=== PATIENT | female | born 1950 | race Hispanic/Latino ===

== ENCOUNTER 2020-03-22 05:21 | Observation (INO) | payer MEDICARE, OTHER ==
[2020-03-17 10:35] LABS: BASOPHILS # (AUTO) 0.1 (0.0-0.1); BASOPHILS % 0.8 % (0.0-1.0); EOSINOPHILS # (AUTO) 0.3 (0.0-0.4); EOSINOPHILS % 2.9 % (0.0-6.0); HEMATOCRIT 43.2 % (34.2-44.1); LYMPHOCYTES # (AUTO) 2.5 (1.0-3.2); LYMPHOCYTES % 25.5 % (18.0-39.1); MEAN CORPUSCULAR HEMOGLOBIN 28.5 pg (28-32); MEAN CORPUSCULAR HGB CONC 30.1 g/dL (31-35); MEAN CORPUSCULAR VOLUME 94.7 fL (81-99); MONOCYTES # (AUTO) 0.8 (0.2-0.8); MONOCYTES % 8.1 % (4.4-11.3); NEUTROPHILS # (AUTO) 6.1 (2.1-6.9); NEUTROPHILS % 62.3 % (38.7-80.0); PLATELET COUNT 421 x10e3/uL (140-360); RED BLOOD COUNT 4.56 x10e6/uL (3.6-5.1); RED CELL DISTRIBUTION WIDTH 13.1 % (11.7-14.4)
--- NOTE | 2020-03-17 10:53 | Diagnostic Imaging Report ---
EXAMINATION: CHEST 2 VIEWS INDICATION: Pre-operative COMPARISON: None FINDINGS: LINES/TUBES:None LUNGS:The lungs are well-inflated. No focal consolidation or pulmonary edema. PLEURA:No pleural effusion or pneumothorax. MEDIASTINUM:The cardiomediastinal silhouette appears normal in size and shape. Atherosclerotic calcifications of the thoracic aorta. BONES/SOFT TISSUES:No acute osseous injury. Right axillary surgical clips. ABDOMEN:No free air under the diaphragm. IMPRESSION: No focal pneumonia or pulmonary edema. Signed by: Kenzie Oleary MD on 03/17/2020 10:49 AM
[2020-03-17 11:01] LABS: ALBUMIN 4.1 g/dL (3.5-5.0); ALBUMIN/GLOBULIN RATIO 0.9 (0.8-2.0); ANION GAP 14.7 mmol/L (8-16); CALCIUM 9.7 mg/dL (8.4-10.2); CREATININE, SERUM 0.93 mg/dL (0.57-1.11); POTASSIUM 3.7 mmol/L (3.5-5.1)
[~2020-03-22] VITALS: Ht 154.9 cm; Wt 67.6 kg
[~2020-03-22 05:21] MED LIST: ALENDRONATE SOD70 MG PO; AMLODIPINE BESYL5 MG PO; ARIMIDEX1 MG PO; FARXIGA5 MG PO; GABAPENTIN300 MG PO; GLIPIZIDE ER5 MG PO; LIPITOR10 MG PO; METFORMIN HCL500 MG PO; MONTELUKAST SOD10 MG PO; VASOTEC5 MG PO
[2020-03-22] MEDS ORDERED: CEFAZOLIN SOD 1 GM/NS 50ML 100 ML IV ONE (06:17)
[2020-03-22] MEDS ORDERED: ESTROGENS CONJUGATED VAGINAL CR 45 GM TUBE PV ONE (07:20)
[2020-03-22] MEDS ORDERED: BUPIVACAINE 0.25%/EPI 30ML SDV INJ ONE ×2 (07:20→08:59)
[2020-03-22] MEDS ORDERED: DOCUSATE SODIUM 100 MG CAP PO PRN (09:30)
[2020-03-22] MEDS ORDERED: KETOROLAC TROMETHAMINE 30 MG/ML VIAL IM PRN (09:30)
[2020-03-22] MEDS ORDERED: HYDROCODONE/APAP 10MG-325MG TAB PO PRN (09:30)
[2020-03-22] MEDS ORDERED: DEXTROSE 50% SYRINGE 50 ML IV PRN (10:00)
[2020-03-22] MEDS ORDERED: MORPHINE SULFATE 2 MG/ML SYR 1ML ONE ×2 (10:44→11:06)
[2020-03-22] MEDS ORDERED: HYDROMORPHONE 2MG/ML 2 MG/ML ML ONE (11:07)
[2020-03-22] MEDS: INSULIN REGULAR, HUMAN 100 UNIT/1 ML 3ML VIAL SQ SCH ×3 (11:42→22:08)
[2020-03-22 14:02] VITALS: BP 133/64
--- NOTE | 2020-03-22 14:02 | NUR ---
RECEIVED PT FROM PACU VIA STRETCHER; PT MOVE OVER WITH MINIMAL ASSIST. PAIN LEVEL 2/10.
--- NOTE | 2020-03-22 15:49 | Operative Report ---
DATE OF PROCEDURE: 03/22/2020 SURGEON: Maggie Duffy MD PREOPERATIVE DIAGNOSIS: Pelvic organ prolapse. POSTOPERATIVE DIAGNOSIS: Pelvic organ prolapse. PROCEDURE: Vaginal hysterectomy, anterior and posterior repair, sacrospinous colpopexy. COMPLICATIONS: None. ESTIMATED BLOOD LOSS: 20 mL. DESCRIPTION OF PROCEDURE: The patient was taken to the OR where general anesthesia was induced. She was prepped and draped in a normal sterile fashion, placed in dorsal lithotomy position after examination under anesthesia. A weighted speculum was placed inside the vagina. Cervix was grasped with single-tooth tenaculum and subvaginal tissue around the cervix was injected with Marcaine with epi 0.25, 20 mL. Circumferential vaginal skin incision was made with a scalpel and bladder was dissected off the cervix using curved Cummings scissors. The pouch of Yang was opened and the curved Zeppelin clamps were applied to the uterosacral ligaments, cut and pedicle secured with transfixion suture of Vicryl 0. The same was repeated on the uterine vessels, cut, pedicle secured with transfixion suture of Vicryl 0. Following this, a finger was passed through the incision and anterior pouch was put under stretch and opened with Metzenbaum scissors. Curved Zeppelin clamps were applied on each side of the uterus and the uterus was freed, sent to pathology and pedicle secured with transfixion suture of Vicryl 0. Following this, the anterior repair was performed with 2 hemostats, were applied on the anterior vaginal wall and using Metzenbaum scissors, the bladder was dissected off the anterior wall using the push-spread technique and the anterior vaginal wall was opened in the midline using the Metzenbaum scissors. The two flaps were dissected off the bladder using both sharp and blunt dissection. The bladder was dissected off completely of anterior vaginal wall and pelvic fascia was pierced with index fingers around the inferior pubic ramus and sacrospinous suture was placed on the sacrospinous ligament using Capio needle willingham. The same was repeated on the other side. The other end of the suture was sutured to the vaginal vault. The pubocervical ligaments were approximated using Vicryl 2, Vicryl 0, 2 sutures were used. Excess vaginal skin was trimmed off using curved Cummings scissors and the vagina was closed with continuous interlocking stitches of Vicryl 0. The sacrospinous sutures were tied and the vaginal vault was lifted. Posterior repair was performed without difficulty with 2 Allis clamps were applied on the mucocutaneous junction about 1 cm from the fourchette and the skin in between was removed. The vagina was dissected off the perineum using both sharp and blunt dissection. The vagina was opened posterior using curved Cummings scissors and the two flaps of the vagina dissected off underlying tissues using both sharp and blunt dissection. The levator ani was approximated using Vicryl 0 stitch, 2 sutures were used and excess vaginal skin was trimmed off using curved Cummings scissors. The vagina was closed with interlocking stitches of Vicryl 0 and the perineum was closed with subcu Vicryl 2-0. Vaginal pack and Garcia catheter placed inside and revealed clear urine, which maintained throughout the surgery. The patient tolerated the procedure well. Lap, instruments and needle counts were correct x2 at the end of procedure. Maggie Duffy MD DD/JOANIE /[id number]
[2020-03-22 16:26] VITALS: BP 133/64
[2020-03-22] MEDS ORDERED: LEVOFLOXACIN 500MG/D5W 100ML 100 ML IV SCH ×2 (18:00→20:00)
[2020-03-22] MEDS: LACTATED RINGER'S 1,000 ML IV SCH ×2 (18:19→18:24)
--- NOTE | 2020-03-22 19:10 | NUR ---
RECEIVED QUICK BRIEF BEDSIDE SHIFT REPORT FROM PREVIOUS NURSE. PATIENT IN BED. CALL LIGHT WITHIN REACH.
[2020-03-22] MEDS: MEPERIDINE HCL INJ 25 MG/ML VIAL IV PRN (19:41)
[2020-03-22] MEDS: ONDANSETRON HCL INJ 2MG/ML 2ML 2 MG/ML VIAL IV PRN (19:41)
[2020-03-22 20:00] VITALS: BP 131/52
[2020-03-22 20:15] VITALS: BP 131/52
[2020-03-23] VITALS: BP 131/59
[2020-03-23] MEDS: MEPERIDINE HCL INJ 25 MG/ML VIAL IV PRN ×3 (01:29→11:26)
[2020-03-23] MEDS: ONDANSETRON HCL INJ 2MG/ML 2ML 2 MG/ML VIAL IV PRN (01:29)
[2020-03-23 04:00] VITALS: BP 133/59
[2020-03-23] MEDS: LACTATED RINGER'S 1,000 ML IV SCH ×3 (04:02→17:09)
--- NOTE | 2020-03-23 07:00 | NUR ---
RECEIVED PATIENT AWAKE RESTING IN BED NO S/S OF DISTRESS. BED LOW, WHEELS LOCKED, SIDE RAILS X2. CALL LIGHT IN REACH WILL CONTINUE TO MONITOR.
[2020-03-23 07:04] LABS: BASOPHILS % 0.1 % (0.0-1.0); EOSINOPHILS % 0.1 % (0.0-6.0); HEMATOCRIT 35.2 % (34.2-44.1); HEMOGLOBIN 11.1 g/dL (12.0-16.0); LYMPHOCYTES # (AUTO) 1.4 (1.0-3.2); LYMPHOCYTES % 9.7 % (18.0-39.1); MEAN CORPUSCULAR HEMOGLOBIN 28.4 pg (28-32); MEAN CORPUSCULAR HGB CONC 31.5 g/dL (31-35); MONOCYTES # (AUTO) 1.4 (0.2-0.8); MONOCYTES % 9.9 % (4.4-11.3); NEUTROPHILS # (AUTO) 11.4 (2.1-6.9); NEUTROPHILS % 79.6 % (38.7-80.0); PLATELET COUNT 377 x10e3/uL (140-360); RED BLOOD COUNT 3.91 x10e6/uL (3.6-5.1); RED CELL DISTRIBUTION WIDTH 12.9 % (11.7-14.4)
--- NOTE | 2020-03-23 07:13 | NUR ---
GAVE BEDSIDE SHIFT REPORT TO ONCOMING NURSE. HOURLY ROUNDING PERFORMED. PATIENT IN BED. CALL LIGHT WITHIN REACH.
[2020-03-23] MEDS: INSULIN REGULAR, HUMAN 100 UNIT/1 ML 3ML VIAL SQ SCH ×3 (07:30→16:30)
[2020-03-23 08:28] VITALS: BP 154/56
--- NOTE | 2020-03-23 08:45 | NUR ---
REMOVED PATIENTS SMILEY CATHETER. PATIENT DUE TO VOID. CATHETER TIP INTACT ON REMOVAL.
--- NOTE | 2020-03-23 10:15 | NUR ---
VAGINAL PACKING REMOVED. NO ACTIVE BLEEDING AT THIS TIME. WILL CONTINUE TO MONITOR.
[2020-03-23 10:16] VITALS: BP 154/56
--- NOTE | 2020-03-23 11:09 | NUR ---
PATIENT HAS VOIDED SINCE SMILEY REMOVAL.
[2020-03-23 12:04] VITALS: BP 151/62
[2020-03-23] MEDS ORDERED: ONDANSETRON HCL 4 MG ORAL DISINTEGRATING TAB PO PRN (12:30)
[2020-03-23 15:51] VITALS: BP 164/65
--- NOTE | 2020-03-23 18:02 | NUR ---
DR. MURPHY MAKING ROUNDS. VERBAL ORDER RECEIVED TO DISCHARGE.
[2020-03-23] MEDS ORDERED: TYLENOL WITH C1 EACH PO (18:07)
[2020-03-23] MEDS ORDERED: COLACE100 MG PO (18:07)
--- NOTE | 2020-03-23 18:15 | NUR ---
REMOVED PATIENTS IV. CATHETER TIP INTACT AND PRESSURE DRESSING APPLIED.
--- NOTE | 2020-03-23 18:54 | NUR ---
PATIENT DISCHARGED IN STABLE CONDITION.
--- OUTSIDE RECORDS SUMMARY | 2020-03-25 19:10 | XMS REPORT | Summary of Care ---
Author Author SALINAS Otoole, JONATHAN ULRICH Organization Unknown Address Unknown Phone Unavailable Care Team Providers Care Hr Manager Name Role Phone CAROLIN MALDONADO M.D. Unavailable Unavailable SURESH DE OLIVEIRA, ANDERSON Armstrong Unavailable Unavailable SUNNY DE OLIVEIRA, TYRONE Unavailable Unavailable ANI DE OLIVEIRA [place], BAHGiovany Unavailable Unavailable Unavailable Unavailable Functional Status Name Dates Details Functional status health issues are not documented Status: Name Dates Details Cognitive status health issues are not d ocumented Status: Problems Name Dates Details Post-menopausal (V49.81, Z78.0) Status: Active Follow up (V67.9, Z09) Status: Active Medications Name Dates Details Anastrozole 1 MG Oral Tablet * Start : 08-Jan-2020 Active Alendronate Sodium 70 MG Oral Tablet * Refills: 0 * Start : 08-Jan-2020 Active metFORMIN HCl - 500 MG Oral Tablet * Refills: 0 * Start : 08-Jan-2020 Active glipiZIDE 5 MG Oral Tablet * Refills: 0 * Start : 08-Jan-2020 Active Atorvastatin Calcium 10 MG Oral Tablet * Refills: 0 * Start : 08-Jan-2020 Active Enalapril Maleate 20 MG Oral Tablet * Refills: 0 * Start : 08-Jan-2020 Active amLODIPine Besy-Benazepril HCl - 5-10 MG Oral Capsule * Refills: 0 * Start : 08-Jan-2020 Active Farxiga 5 MG Oral Tablet * Refills: 0 * Start : 08-Jan-2020 Active Gabapentin 300 MG Oral Capsule * Refills: 0 * Start : 08-Jan-2020 Active Estradiol 0.1 MG/GM Vaginal Cream APPLY A PEA-SIZED AMOUNT (0.5 mg) TO VAGINAL OPENING EVERY DAY FOR ONE WEEK * Quantity: 1 Refills: 0 CAROLIN MALDONADO M.D. * Start : 08-Jan-2020 Active 42.5 GM Tube Allergies and Adverse Reactions Name Dates Details No Known Allergies (Allergy) Status: Act mai Past Medical History Name Dates Details History of Diabetes (250.00, E11.9) Status: Resolved History of Ductal carcinoma of right omari ast (V10.3, Z85.3) Status: Resolved History of High blood pressure (401.9, I 10) Status: Resolved History of hyperlipidemia (V12.29, Z86.3 9) Status: Resolved Procedures Procedure Dates Details History of Lumpectomy Completed History of [place] lymph node biopsy procedure Completed Immunization Name Dates Details Immunizations not documented Social History Name Dates Details - Status: Name Dates Details Never smoked tobacco (finding) Vital Signs Date Test Result Details [id number] Systolic blood pressure 161 mm[Hg] Status: Comments : Location: RUE; Position: Sitting Diastolic blood pressure 74 mm[Hg] Status: Comment s: Location: RUE; Position: Sitting Body height 60 in Status: Weight 152 lb Status: Body mass index (BMI) [Ratio] 29.69 kg/m2 Status: Body surface area Derived from formula 1.66 m2 S tatus: Body temperature 98.4 f Status: Comments: Me thod: Tympanic Heart Rate 111 /min Status: [id number] Systolic blood pressure 163 mm[Hg] Status: Comments : Location: RUE; Position: Sitting Diastolic blood pressure 73 mm[Hg] Status: Comment s: Location: RUE; Position: Sitting Body height 60 in Status: Weight 152 lb Status: Body mass index (BMI) [Ratio] 29.69 kg/m2 Status: Body surface area Derived from formula 1.66 m2 S tatus: Heart Rate 97 /min Status: Results Date Description Value Details Results not documented Plan of Care Name Dates Details Planned Observations Planned Goals not documented Planned Encounters Appointment; TYRONE CORREA M.D. On: 21-Jan-2020 13:00 Appointment; [facility], ROOM1 On: 12-Feb-2020 9:30 Instructions Name Dates Details Instructions not documented Encounters Appointment; CAROLIN MALDONADO M.D. Encounter Diagnosis: Problem not documented On: 08-Jan-2020 14:30 Appointment; CAROLIN MALDONADO M.D. Encounter Diagnosis: Problem not documented On: 15-Jan-2020 10:30
--- OUTSIDE RECORDS SUMMARY | 2020-03-25 19:10 | XMS REPORT | Summary of Care ---
Author Author SALINAS Otoole, JONATHAN ULRICH Organization Unknown Address Unknown Phone Unavailable Care Team Providers Care Professor Of Communication Name Role Phone LADI MALDONADO M.D. Unavailable Unavailable SURESH DE OLIVEIRA, ANDERSON Armstrong Unavailable Unavailable SUNNY DE OLIVEIRA, TYRONE Unavailable Unavailable ANI DE OLIVEIRA [place], BAHGiovany Unavailable Unavailable Unavailable Unavailable Functional Status [...] ONE WEEK * Quantity: 1 Refills: 0 LADI MALDONADO M.D. * Start : 08-Jan-2020 Active [...] Details History of Lumpectomy Completed History of [place] lymph node biopsy procedure Completed Immunization Name Dates Details Immunizations not documented Social History Name Dates Details - Status: Name Dates Details Never smoked tobacco (finding) Vital Signs Date Test Result Details [id number] Systolic blood pressure 161 mm[Hg] Status: Comments [...] thod: Tympanic Heart Rate 111 /min Status: [id number] Systolic blood pressure 163 mm[Hg] Status: Comments [...] Goals not documented Planned Encounters Appointment; TYRONE ESPINO M.D. On: 21-Jan-2020 13:00 Appointment; DENICE GENTILE M.D. On: 12-Feb-2020 9:00 Interventions Provided Discussion/Summary* 69 yo with PMHx significant for R breast invasive ductal carcinoma (ER+/AZ+, Her2-), DM, HTN, HLD, here for follow-up of pessary placement. * 1. Uterine procidentia * -Fitted with ring with support pessary #5 on 01/08/2020. Reports is happy with the pessary * -Taught Pt how to take pessary out, clean the pessary, and place the pessary back in herself. Pt able to demonstrate proficiency in taking the pessary out and placing it back in clinic today * -Advised Pt to clean pessary with soap and water weekly. Pt expressed understanding * -Compliant with estrace cream * -Pelvic exam: small abrasion to posterior fourchette noted, otherwise WNL. Pt placed pessary in herself and pessary noted to not be in contact with the area of abrasion. Advised Pt to apply the estrace cream to the area of abrasion and follow-up in 1 month * -Referral to Dr. Espino sent at last visit, however is not in Pt's insurance network. Information for [facility] urogyn given * 2. Breast cancer * - R breast invasive ductal carcinoma (ER+/AZ+, Her2-) Dx in 2014 (full management course in external medical records) * - s/p radiation, lumpectomy, SNLD. On anastrozole since 2015, reports that is supposed to take 5 the anastrozole for 5 years (so is scheduled to stop taking it in 2020) * - F/b an oncologist at [facility], next appointment 06/2020 * - F/b [facility], is to follow-up 03/2020 * 3. DM * -On metformin 1000 mg BID, glipizide 10 mg BID, gabapentin 300 mg BID, Invokana 100 mg daily, Farxiga 5 mg daily * 4. HTN * -On Enalapril 20 mg daily, valsartan 40 mg daily * -BP 161/74 with repeat 145/72. Reports she was running late and in hurry when the first BP was taken * -Pt asymptomatic * -Counseled Pt on the importance of following-up with PCP with HTN management. Pt reports that she is in contact with PCP for follow-up * 5. HLD * -On atorvastatin 10 mg daily * 6. HCM * -Pap: denies h/o abnormal paps smears. Paps not indicated * -MMG: reports had abnormal MMG 11/2019 with biopsy that was normal. Is scheduled for another MMG 03/2020 by an outside provider * RTC in 1 month. * Discussed with Dr. Trinidad. * Ladi Maldonado MD * PGY-1. Instructions Name Dates Details Instructions not documented Encounters Appointment; LADI MALDONADO M.D. Encounter Diagnosis: Problem not documented On: 08-Jan-2020 14:30 Appointment; LADI MALDONADO M.D. Encounter Diagnosis: Problem not documented On: 15-Jan-2020 10:30
--- OUTSIDE RECORDS SUMMARY | 2020-03-25 19:10 | XMS REPORT | Continuity of Care Document ---
Author Author [facility] t Organization [facility] Address [address] [place] [address] Phone Unavailable Care Team Providers Care Advertising Teacher Name Role Phone JOHN BROWN PCP Unavailable FAUSTO MURPHY Attphys Unavailable CAROLIN MALDONADO M.D. Attphys Unavailable Problems Condition Name Condition Details Condition Category Status Onset Date Resolution Date Last Treatment Date Treating Clinician Comments Source Post-menopausal Post-menopausal Problem Active [facility] History of Diabetes History of Diabetes Problem Resolved [facility] History of Ductal carcinoma of right breast History of Ductal carcinoma of right breast Problem Resolved [facility] History of High blood pressure History of High blood pressure Probl em Resolved [facility] History of hyperlipidemia History of hyperlipidemia Problem Resolved [facility] Follow up Follow up Problem Active [facility] Allergies, Adverse Reactions, Alerts This patient has no known allergies or adverse reactions. Social History Smoking Status Start Date Stop Date Source [facility] smoked tobacco (finding[facility] Medications Ordered Medication Name Filled Medication Name Start Date Stop Da te Current Medication? Ordering Clinician Indication Dosage Frequency Signature (SIG) Comments Components Source Anastrozole 1 MG Oral Tablet Anastrozole 1 MG Oral Tablet 2019-12-25 5 00:00:00 Yes [facility] Alendronate Sodium 70 MG Oral Tablet Alendronate Sodium 70 M G Oral Tablet 2020-01-08 00:00:00 Yes [facility] metFORMIN HCl - 500 MG Oral Tablet metFORMIN HCl - 500 MG Or al Tablet 2020-01-08 00:00:00 Yes [facility] glipiZIDE 5 MG Oral Tablet glipiZIDE 5 MG Oral Tablet 2020-01-08 00:0 0:00 Yes [facility] Atorvastatin Calcium 10 MG Oral Tablet Atorvastatin Calcium 10 MG Oral Tablet 2020-01-08 00:00:00 Yes [facility] Enalapril Maleate 20 MG Oral Tablet Enalapril Maleate 20 MG Oral Tablet 2020-01-08 00:00:00 Yes [facility] amLODIPine Besy-Benazepril HCl - 5-10 MG Oral Capsule amLODIPine Besy-Benazepril HCl - 5-10 MG Oral Capsule 2020-01-08 00:00:00 Yes [facility] Farxiga 5 MG Oral Tablet Farxiga 5 MG Oral Tablet 2020-01-08 00:00:00 Yes [facility] Gabapentin 300 MG Oral Capsule Gabapentin 300 MG Oral Capsul e 2020-01-08 00:00:00 Yes [facility] Estradiol 0.1 MG/GM Vaginal Cream Estradiol 0.1 MG/GM Vagina l Cream 2020-01-08 00:00:00 Yes CAROLIN MALDONADO M.D. AP PLY A PEA-SIZED AMOUNT (0.5 mg) TO VAGINAL OPENING EVERY DAY FOR ONE WEEK U [facility] Vital Signs Vital Name Observation Time Observation Value Comments Source Systolic blood pressure 2020-01-15 10:43:00 161 mm[Hg] Loca tion: RUE; Position: Sitting [facility] Diastolic blood pressure 2020-01-15 10:43:00 74 mm[Hg] Loc ation: RUE; Position: Sitting [facility] Body height 2020-01-15 10:43:00 60 [in_us] [facility] Weight 2020-01-15 10:43:00 152 [lb_av] [facility] Body mass index (BMI) [Ratio] 2020-01-15 10:43:00 29.69 kg/m2 [facility] Body temperature 2020-01-15 10:43:00 98.4 [degF] Method: Tympanic [facility] Heart Rate 2020-01-15 10:43:00 111 /min [facility] Systolic blood pressure 2020-01-08 14:20:00 163 mm[Hg] Loca tion: RUE; Position: Sitting [facility] Diastolic blood pressure 2020-01-08 14:20:00 73 mm[Hg] Loc ation: RUE; Position: Sitting [facility] Body height 2020-01-08 14:20:00 60 [in_us] [facility] Weight 2020-01-08 14:20:00 152 [lb_av] [facility] Body mass index (BMI) [Ratio] 2020-01-08 14:20:00 29.69 kg/m2 [facility] Heart Rate 2020-01-08 14:20:00 97 /min [facility] Procedures Procedure Date / Time Performed Performing Clinician [facility] e History of Lumpectomy [facility] History of [place] lymph node biopsy procedure [facility] Encounters Start Date/Time End Date/Time Encounter Type Admission Type [facility] Care Department Encounter ID Source 2020-01-15 10:30:00 2020-01-15 10:30:00 Appointment; CAROLIN MALDONADO M.D. NGUY, LINDSEY, M.D. [facility] [id number] 2020-01-08 14:30:00 2020-01-08 14:30:00 Appointment; CAROLIN MALDONADO M.D. NGUY, LINDSEY, M.D. [facility] [id number] [facility] 2017-12-09 09:12:00 2017-12-09 09:12:00 Outpatient [facility] [id number] [facility] 2017-08-12 07:18:00 2017-08-12 07:18:00 Outpatient [facility] [id number] [facility] 2017-06-18 10:16:00 2017-06-18 10:16:00 Outpatient [facility] [id number] [facility] 2017-06-14 12:58:00 2017-06-14 12:58:00 Outpatient [facility] [id number] [facility] Results Test Description Test Time Test Comments Results Result Comments Source CHEST 2 VIEWS 2020-03-17 10:49:00 [facility] [address] [place] [address] Patient Name: JONATHAN ESCOBEDO MR #: [id number] : 1950 Age/Sex: 69/F Req #: [id number] Adm Physician: Ordered by: FAUSTO MURPHY MD Report #: [id number] Location: OR Room/Bed: Procedure: [id number] DX/CHEST 2 VIEWS Exam Date: 03/17/20 Exam Time: 1013 REPORT STATUS: Signed EXAMINATION: CHEST 2 VIEWS INDICATION: Pre-operative COMPARISON: None FINDINGS: LINES/TUBES:None LUNGS:The lungs are well-inflated. No focal consolidation or pulmonary edema. PLEURA:No pleural effusion or pneumothorax. MEDIASTINUM:The cardiomediastinal silhouette appears normal in size and shape. Atherosclerotic calcifications of the thoracic aorta. BONES/SOFT TISSUES:No acute osseous injury. Right axillary surgical clips. ABDOMEN:No free air under the diaphragm. IMPRESSION: No focal pneumonia or pulmonary edema. Signed by: Rosi Jurado MD on 03/17/2020 10:49 AM Dictated By: ROSI JURADO MD 1049 Transcribed By: SANKET on 03/17/20 1049 COPY TO: FAUSTO MURPHY MD US Breast Biopsy w/ US Guide Right 2019-10-21 10:44:42 Patient: JONATHAN ESCOBEDO Date/Time10/13/2019 12:48 CSTReason for ExamC50.411AddendumPathology:Fibroadipose tissue with fat necrosis. Dense hyalinizing fibrosis. Scattered chronic inflammation. Negative for malignancy.Pathology is concordant with imaging findings.RECOMMENDATIONS: RETURN TO ANNUAL MAMMOGRAM AND ANNUAL BREAST ULTRASOUND RECOMMENDED.BI-RADS Category 2: BenignBI-RADS Category 2: Benign Final Dictated by: MD Juan, Valerie FDictated DT/TM: 10/21/2019 10:41 amSigned by: MD Martinez Eniola FSigned (Electronic Signature): 10/21/2019 10:44 amReportDictation location: R 16RIGHT BREAST ULTRASOUND GUIDED CORE BIOPSY WITH MARKER PLACEMENT AND POSTPROCEDURE RIGHT MAMMOGRAM:History: The patient presents for biopsy of developing asymmetry in the right breast in the areas of known oral cysts..Comparison made to prior ultrasound dated 09/19/2019FINDINGS:Informed consent was obtained from the patient which included a discussion of risks, benefits and alternatives.Using ultrasound guidance, aseptic technique and %1 lidocaine local anesthesia, an incision was made in the skin with a scalpel. A 14 gauge core biopsy needle was placed to the level of the nodule via coaxial technique using ultrasound guidance and 5 cores were obtained. A ring-shaped marker was deployed at the biopsy site. The patient tolerated the procedure without difficulty.The tissue specimens were placed in formalin and submitted to the pathologist for histologic analysis.Pressure was held on the biopsy site until all bleeding subsided. The estimated blood loss was negligible. The skin incision was closed with Steri-strips. Post biopsy instructions were reviewed with the patient and a copy was given to her.Postprocedure mammogram was per formed to evaluate clip placement. Please note, a diagnostic mammogram was not performed. The biopsy marker is in the expected location.The patient tolerated the procedure well and left the department in good condition.IMPRESSION:1. Ultrasound guided core biopsy of asymmetry, within the right breast, 12:00 axis, with marker placement.Exam Date/Time10/13/2019 12:48 CSTReport2. Histopathology is pending.3. Note that there is an additional focal asymmetry more posterior to the biopsy area, also at 12:00 axis. In the setting of negative biopsy, this other asymmetry may be followed up closely . If there is enlargement during follow-up, stereotactic biopsy (rather than ultrasound biopsy) may be necessary for increased accuracy. Breast MRI may be considered at any point (after 6 weeks). Final Dictated by: MD Martinez Eniola FDictated DT/TM: 10/13/2019 2:04 pmSigned by: MD Martinez Eniola FSigned (Electronic Signature): 10/13/2019 2:13 pmReport last revised on 10/21/2019 10:44 MAGAZINE PUBLISHER by MD Martinez Eniola F [facility] Mammo Digital Diagnostic Right 2019-10-21 10:44:42 Patient: JONATHAN ESCOBEDO Date/Time10/13/2019 12:32 CSTReason for ExamC50.411AddendumPathology:Fibroadipose tissue with fat necrosis. Dense hyalinizing fibrosis. Scattered chronic inflammation. Negative for malignancy.Pathology is concordant with imaging findings.RECOMMENDATIONS: RETURN TO ANNUAL MAMMOGRAM AND ANNUAL BREAST ULTRASOUND RECOMMENDED.BI-RADS Category 2: BenignBI-RADS Category 2: Benign Final Dictated by: MD Juan, Valerie FDictated DT/TM: 10/21/2019 10:41 amSigned by: MD Martinez Eniola FSigned (Electronic Signature): 10/21/2019 10:44 amReportDictation location: R 16RIGHT BREAST ULTRASOUND GUIDED CORE BIOPSY WITH MARKER PLACEMENT AND POSTPROCEDURE RIGHT MAMMOGRAM:History: The patient presents for biopsy of developing asymmetry in the right breast in the areas of known oral cysts..Comparison made to prior ultrasound dated 09/19/2019FINDINGS:Informed consent was obtained from the patient which included a discussion of risks, benefits and alternatives.Using ultrasound guidance, aseptic technique and %1 lidocaine local anesthesia, an incision was made in the skin with a scalpel. A 14 gauge core biopsy needle was placed to the level of the nodule via coaxial technique using ultrasound guidance and 5 cores were obtained. A ring-shaped marker was deployed at the biopsy site. The patient tolerated the procedure without difficulty.The tissue specimens were placed in formalin and submitted to the pathologist for histologic analysis.Pressure was held on the biopsy site until all bleeding subsided. The estimated blood loss was negligible. The skin incision was closed with Steri-strips. Post biopsy instructions were reviewed with the patient and a copy was given to her.Postprocedure mammogram was per formed to evaluate clip placement. Please note, a diagnostic mammogram was not performed. The biopsy marker is in the expected location.The patient tolerated the procedure well and left the department in good condition.IMPRESSION:1. Ultrasound guided core biopsy of asymmetry, within the right breast, 12:00 axis, with marker placement.Exam Date/Time10/13/2019 12:32 CSTReport2. Histopathology is pending.3. Note that there is an additional focal asymmetry more posterior to the biopsy area, also at 12:00 axis. In the setting of negative biopsy, this other asymmetry may be followed up closely . If there is enlargement during follow-up, stereotactic biopsy (rather than ultrasound biopsy) may be necessary for increased accuracy. Breast MRI may be considered at any point (after 6 weeks). Final Dictated by: MD Martinez Eniola FDictated DT/TM: 10/13/2019 2:04 pmSigned by: MD Martinez Eniola FSigned (Electronic Signature): 10/13/2019 2:13 pmReport last revised on 10/21/2019 10:44 MAGAZINE PUBLISHER by MD Martinez Eniola F US Breast Biopsy w/ US Guide Right 2019-10-13 14:13:01 Patient: JONATHAN ESCOBEDO Date/Time10/13/2019 12:48 CSTReason for ExamC50.411ReportDictation location: R 16RIGHT BREAST ULTRASOUND GUIDED CORE BIOPSY WITH MARKER PLACEMENT AND POSTPROCEDURE RIGHT MAMMOGRAM:History: The patient presents for biopsy of developing asymmetry in the right breast in the areas of known oral cysts..Comparison made to prior ultrasound dated 09/19/2019FINDINGS:Informed consent was obtained from the patient which included a discussion of risks, benefits and alternatives.Using ultrasound guidance, aseptic technique and %1 lidocaine local anesthesia, an incision was made in the skin with a scalpel. A 14 gauge core biopsy needle was placed to the level of the nodule via coaxial technique using ultrasound guidance and 5 cores were obtained. A ring-shaped marker was deployed at the biopsy site. The patient tolerated the procedure without difficulty.The tissue specimens were placed in formalin and submitted to the pathologist for histologic analysis.Pressure was held on the biopsy site until all bleeding subsided. The estimated blood loss was negligible. The skin incision was closed with Steri-strips. Post biopsy instructions were reviewed with the patient and a copy was given to her.Postprocedure mammogram was performed to evaluate clip placement. Please note, a diagnostic mammogram was not performed. The biopsy marker is in the expected location.The patient tolerated the procedure well and left the department in good condition.IMPRESSION:1. Ultrasound guided core biopsy of asymmetry, within the right breast, 12:00 axis, with marker placement.2. Histopathology is pending.3. Note that there is an additional focal asymmetry more posterior to the biopsy area, also at 12:00 axis. In the setting of negative biopsy, this other asymmetry may be followed up closely . If there is enlargement during follow-up, stereotactic biopsy (rather than ultrasound biopsy) may be necessary for increased accuracy. Breast MRI may be considered at any point (after 6 weeks). Final Dictated by: MD Juan, Valerie FDictated DT/TM: 10/13/2019 2:04 pmSigned by: MD Juan, Valerie FSigned (Electronic Signature): 10/13/2019 2:13 pm [facility] Mammo Digital Diagnostic Right 2019-10-13 14:13:01 Patient: JONATHAN ESCOBEDO Date/Time10/13/2019 12:32 CSTReason for ExamC50.411ReportDictation location: R 16RIGHT BREAST ULTRASOUND GUIDED CORE BIOPSY WITH MARKER PLACEMENT AND POSTPROCEDURE RIGHT MAMMOGRAM:History: The patient presents for biopsy of developing asymmetry in the right breast in the areas of known oral cysts..Comparison made to prior ultrasound dated 09/19/2019FINDINGS:Informed consent was obtained from the patient which included a discussion of risks, benefits and alternatives.Using ultrasound guidance, aseptic technique and %1 lidocaine local anesthesia, an incision was made in the skin with a scalpel. A 14 gauge core biopsy needle was placed to the level of the nodule via coaxial technique using ultrasound guidance and 5 cores were obtained. A ring-shaped marker was deployed at the biopsy site. The patient tolerated the procedure without difficulty.The tissue specimens were placed in formalin and submitted to the pathologist for histologic analysis.Pressure was held on the biopsy site until all bleeding subsided. The estimated blood loss was negligible. The skin incision was closed with Steri-strips. Post biopsy instructions were reviewed with the patient and a copy was given to her.Postprocedure mammogram was performed to evaluate clip placement. Please note, a diagnostic mammogram was not performed. The biopsy marker is in the expected location.The patient tolerated the procedure well and left the department in good condition.IMPRESSION:1. Ultrasound guided core biopsy of asymmetry, within the right breast, 12:00 axis, with marker placement.2. Histopathology is pending.3. Note that there is an additional focal asymmetry more posterior to the biopsy area, also at 12:00 axis. In the setting of negative biopsy, this other asymmetry may be followed up closely . If there is enlargement during follow-up, stereotactic biopsy (rather than ultrasound biopsy) may be necessary for increased accuracy. Breast MRI may be considered at any point (after 6 weeks). Final Dictated by: MD Martinez Eniola FDictated DT/TM: 10/13/2019 2:04 pmSigned by: MD Martinez Eniola FSigned (Electronic Signature): 10/13/2019 2:13 pm US Breast Complete Right 2019-10-02 16:05:08 Pat ient: JONATHAN ESCOBEDO Date/Time09/30/2019 09:45 CSTReason for ExamC50.411AddendumADDENDUM: CORRECTION:RECOMMENDATIONS: RIGHT BREAST ULTRASOUND-GUIDED BIOPSY. IRREGULAR AREA AT 12:00 AXIS.BI-RADS Category 4: Suspicious Final Dictated by: MD Martinez Eniola FDictated DT/TM: 10/02/2019 4:04 pmSigned by: MD Martinez Eniola FSigned (Electronic Signature): 10/02/2019 4:05 pmReportLocation [id number]:BILATERAL DIAGNOSTIC MAMMOGRAM WITH TOMOSYNTHESIS AND CADRIGHT BREAST ULTRASOUND COMPLETELEFT BREAST ULTRASOUND COMPLETEHISTORY: 68-year-old female with history of right breast cancer status post partial mastectomy and radiationCOMPARISON: Presenting for follow-up. Multiple prior mammograms and breast ultrasound, most recent prior is dated 09/19/2018.MAMMOGRAM:Technique: CC, exaggerated CC, ML and MLO views of both breasts. CC and MLO tomographic images of each breast with C- view provided. Computer-aided detection is u tilized.There are scattered areas of fibroglandular density.Right breast: Diffuse skin and trabecular thickening remains. The asymmetry at 12:00 axis is less prominent compared to prior mammogram with associated focal dystrophic calcification. However, ultrasound to be obtained for confirmation.Left breast: No evidence of new dominant mass, asymmetry, architectural distortion or suspicious microcalcifications is seen.ULTRASOUND:Technique: Complete survey of the right breast with survey of the right axilla obtained. Complete survey of the left breast with survey of the left axilla obtained. Real-time images of breasts performed by the radiologist as well.Right breast: At the 12:00 axis, 4 cm from the nipple, irregular 5 x 5 x 5 mm area is redemonstrated, is adjacent 2 the previously described calcification/calcified oil cysts. 12:00- 1:00 biopsy area is again seen as well. No axillary lymphadenopathy.Left breast: No evidence of focal mass, cyst or area of disturbed echotexture. No axillary lympha denopathy.PHYSICAL EXAM:On exam, no palpable abnormalities . Right breast scar.Exam Date/Time09/30/2019 09:45 CSTReportIMPRESSION:Indeterminate irregular hypoechoic area, 5 x 5 x 5 mm right breast 12:00 axis. Unclear if this represents components of a oil cyst versus mass. Biopsy recommended.RECOMMENDATIONS: RETURN TO ANNUAL SCREENING MAMMOGRAM RECOMMENDED.BI-RADS Category 2: Benign Final Dictated by: Javier Dowling MD, Eniola FDictated DT/TM: 09/30/2019 10:29 amSigned by: Javier Dowling MD, Eniola FSigned (Electronic Signature): 09/30/2019 10:39 amReport last revised on 10/02/2019 16:05 MAGAZINE PUBLISHER by MD Martinez Eniola F US Breast Complete Left 2019-10-02 16:05:08 Karyn ent: JONATHAN ESCOBEDO Date/Time09/30/2019 09:45 CSTReason for ExamC50.411AddendumADDENDUM: CORRECTION:RECOMMENDATIONS: RIGHT BREAST ULTRASOUND-GUIDED BIOPSY. IRREGULAR AREA AT 12:00 AXIS.BI-RADS Category 4: Suspicious Final Dictated by: MD Martinez Eniola FDictated DT/TM: 10/02/2019 4:04 pmSigned by: MD Martinez Eniola FSigned (Electronic Signature): 10/02/2019 4:05 pmReportLocation [id number]:BILATERAL DIAGNOSTIC MAMMOGRAM WITH TOMOSYNTHESIS AND CADRIGHT BREAST ULTRASOUND COMPLETELEFT BREAST ULTRASOUND COMPLETEHISTORY: 68-year-old female with history of right breast cancer status post partial mastectomy and radiationCOMPARISON: Presenting for follow-up. Multiple prior mammograms and breast ultrasound, most recent prior is dated 09/19/2018.MAMMOGRAM:Technique: CC, exaggerated CC, ML and MLO views of both breasts. CC and MLO tomographic images of each breast with C- view provided. Computer-aided detection is u tilized.There are scattered areas of fibroglandular density.Right breast: Diffuse skin and trabecular thickening remains. The asymmetry at 12:00 axis is less prominent compared to prior mammogram with associated focal dystrophic calcification. However, ultrasound to be obtained for confirmation.Left breast: No evidence of new dominant mass, asymmetry, architectural distortion or suspicious microcalcifications is seen.ULTRASOUND:Technique: Complete survey of the right breast with survey of the right axilla obtained. Complete survey of the left breast with survey of the left axilla obtained. Real-time images of breasts performed by the radiologist as well.Right breast: At the 12:00 axis, 4 cm from the nipple, irregular 5 x 5 x 5 mm area is redemonstrated, is adjacent 2 the previously described calcification/calcified oil cysts. 12:00- 1:00 biopsy area is again seen as well. No axillary lymphadenopathy.Left breast: No evidence of focal mass, cyst or area of disturbed echotexture. No axillary lympha denopathy.PHYSICAL EXAM:On exam, no palpable abnormalities . Right breast scar.Exam Date/Time09/30/2019 09:45 CSTReportIMPRESSION:Indeterminate irregular hypoechoic area, 5 x 5 x 5 mm right breast 12:00 axis. Unclear if this represents components of a oil cyst versus mass. Biopsy recommended.RECOMMENDATIONS: RETURN TO ANNUAL SCREENING MAMMOGRAM RECOMMENDED.BI-RADS Category 2: Benign Final Dictated by: Javier Dowling MD, Eniola FDictated DT/TM: 09/30/2019 10:29 amSigned by: Javier Dowling MD, Eniola FSigned (Electronic Signature): 09/30/2019 10:39 amReport last revised on 10/02/2019 16:05 MAGAZINE PUBLISHER by MD Martinez Eniola F Mammo Digital Diagnostic Bilat 2019-10-02 16:05:08 Patient: JONATHAN ESCOBEDO Date/Time09/30/2019 07:41 CSTReason for ExamC50.411AddendumADDENDUM: CORRECTION:RECOMMENDATIONS: RIGHT BREAST ULTRASOUND-GUIDED BIOPSY. IRREGULAR AREA AT 12:00 AXIS.BI-RADS Category 4: Suspicious Final Dictated by: MD Martinez Eniola FDictated DT/TM: 10/02/2019 4:04 pmSigned by: MD Martinez Eniola FSigned (Electronic Signature): 10/02/2019 4:05 pmReportLocation [id number]:BILATERAL DIAGNOSTIC MAMMOGRAM WITH TOMOSYNTHESIS AND CADRIGHT BREAST ULTRASOUND COMPLETELEFT BREAST ULTRASOUND COMPLETEHISTORY: 68-year-old female with history of right breast cancer status post partial mastectomy and radiationCOMPARISON: Presenting for follow-up. Multiple prior mammograms and breast ultrasound, most recent prior is dated 09/19/2018.MAMMOGRAM:Technique: CC, exaggerated CC, ML and MLO views of both breasts. CC and MLO tomographic images of each breast with C- view provided. Computer-aided detection is u tilized.There are scattered areas of fibroglandular density.Right breast: Diffuse skin and trabecular thickening remains. The asymmetry at 12:00 axis is less prominent compared to prior mammogram with associated focal dystrophic calcification. However, ultrasound to be obtained for confirmation.Left breast: No evidence of new dominant mass, asymmetry, architectural distortion or suspicious microcalcifications is seen.ULTRASOUND:Technique: Complete survey of the right breast with survey of the right axilla obtained. Complete survey of the left breast with survey of the left axilla obtained. Real-time images of breasts performed by the radiologist as well.Right breast: At the 12:00 axis, 4 cm from the nipple, irregular 5 x 5 x 5 mm area is redemonstrated, is adjacent 2 the previously described calcification/calcified oil cysts. 12:00- 1:00 biopsy area is again seen as well. No axillary lymphadenopathy.Left breast: No evidence of focal mass, cyst or area of disturbed echotexture. No axillary lympha denopathy.PHYSICAL EXAM:On exam, no palpable abnormalities . Right breast scar.Exam Date/Time09/30/2019 07:41 CSTReportIMPRESSION:Indeterminate irregular hypoechoic area, 5 x 5 x 5 mm right breast 12:00 axis. Unclear if this represents components of a oil cyst versus mass. Biopsy recommended.RECOMMENDATIONS: RETURN TO ANNUAL SCREENING MAMMOGRAM RECOMMENDED.BI-RADS Category 2: Benign Final Dictated by: Javier Dowling MD, Eniola FDictated DT/TM: 09/30/2019 10:29 amSigned by: Javier Dowling MD, Eniola FSigned (Electronic Signature): 09/30/2019 10:39 amReport last revised on 10/02/2019 16:05 MAGAZINE PUBLISHER by MD Martinez Eniola F US Breast Complete Right 2019-09-30 10:39:57 Pat ient: JONATHAN ESCOBEDO Date/Time09/30/2019 09:45 CSTReason for ExamC50.411ReportLocation [id number]:BILATERAL DIAGNOSTIC MAMMOGRAM WITH TOMOSYNTHESIS AND CADRIGHT BREAST ULTRASOUND COMPLETELEFT BREAST ULTRASOUND COMPLETEHISTORY: 68-year-old female with history of right breast cancer status post partial mastectomy and radiationCOMPARISON: Presenting for follow-up. Multiple prior mammograms and breast ultrasound, most recent prior is dated 09/19/2018.MAMMOGRAM:Technique: CC, exaggerated CC, ML and MLO views of both breasts. CC and MLO tomographic images of each breast with C- view provided. Computer-aided detection is utilized.There are scattered areas of fibroglandular density.Right breast: Diffuse skin and trabecular thickening remains. The asy mmetry at 12:00 axis is less prominent compared to prior mammogram with associated focal dystrophic calcification. However, ultrasound to be obtained for confirmation.Left breast: No evidence of new dominant mass, asymmetry, architectural distortion or suspicious microcalcifications is seen.ULTRASOUND:Technique: Complete survey of the right breast with survey of the right axilla obtained. Complete survey of the left breast with survey of the left axilla obtained. Real-time images of breasts performed by the radiologist as well.Right breast: At the 12:00 axis, 4 cm from the nipple, irregular 5 x 5 x 5 mm area is redemonstrated, is adjacent 2 the previously described calcification/calcified oil cysts. 12:00- 1:00 biopsy area is again seen as well. No axillary lymphadenopathy.Left breast: No evidence of focal mass, cyst or area of disturbed echotexture. No axillary lymphadenopathy.PHYSICAL EXAM:On exam, no palpable abnormalities . Right breast scar.IMPRESSION:Indeterminate irregular hypoechoic area, 5 x 5 x 5 mm right breast 12:00 axis. Unclear if this represents components of a oil cyst versus mass. Biopsy recommended.RECOMMENDATIONS: RETURN TO ANNUAL SCREENING MAMMOGRAM RECOMMENDED.Exam Date/Time09/30/2019 09:45 CSTReportBI-RADS Category 2: Benign Final Dictated by: MD Martinez Eniola FDictated DT/TM: 09/30/2019 10:29 amSigned by: MD Juan, Valerie FSigned (El ectronic Signature): 09/30/2019 10:39 am US Breast Complete Left 2019-09-30 10:39:57 Karyn ent: JONATHAN ESCOBEDO Date/Time09/30/2019 09:45 CSTReason for ExamC50.411ReportLocation [id number]:BILATERAL DIAGNOSTIC MAMMOGRAM WITH TOMOSYNTHESIS AND CADRIGHT BREAST ULTRASOUND COMPLETELEFT BREAST ULTRASOUND COMPLETEHISTORY: 68-year-old female with history of right breast cancer status post partial mastectomy and radiationCOMPARISON: Presenting for follow-up. Multiple prior mammograms and breast ultrasound, most recent prior is dated 09/19/2018.MAMMOGRAM:Technique: CC, exaggerated CC, ML and MLO views of both breasts. CC and MLO tomographic images of each breast with C- view provided. Computer-aided detection is utilized.There are scattered areas of fibroglandular density.Right breast: Diffuse skin and trabecular thickening remains. The asy mmetry at 12:00 axis is less prominent compared to prior mammogram with associated focal dystrophic calcification. However, ultrasound to be obtained for confirmation.Left breast: No evidence of new dominant mass, asymmetry, architectural distortion or suspicious microcalcifications is seen.ULTRASOUND:Technique: Complete survey of the right breast with survey of the right axilla obtained. Complete survey of the left breast with survey of the left axilla obtained. Real-time images of breasts performed by the radiologist as well.Right breast: At the 12:00 axis, 4 cm from the nipple, irregular 5 x 5 x 5 mm area is redemonstrated, is adjacent 2 the previously described calcification/calcified oil cysts. 12:00- 1:00 biopsy area is again seen as well. No axillary lymphadenopathy.Left breast: No evidence of focal mass, cyst or area of disturbed echotexture. No axillary lymphadenopathy.PHYSICAL EXAM:On exam, no palpable abnormalities . Right breast scar.IMPRESSION:Indeterminate irregular hypoechoic area, 5 x 5 x 5 mm right breast 12:00 axis. Unclear if this represents components of a oil cyst versus mass. Biopsy recommended.RECOMMENDATIONS: RETURN TO ANNUAL SCREENING MAMMOGRAM RECOMMENDED.Exam Date/Time09/30/2019 09:45 CSTReportBI-RADS Category 2: Benign Final Dictated by: MD Martinez Eniola FDictated DT/TM: 09/30/2019 10:29 amSigned by: MD Martinez Eniola FSigned (El ectronic Signature): 09/30/2019 10:39 am MG Mammo Digital Diagnostic Bilat 2019-09-30 10:39:57 Patient: JONATHAN ESCOBEDO Date/Time09/30/2019 07:41 CSTReason for ExamC50.411ReportLocation [id number]:BILATERAL DIAGNOSTIC MAMMOGRAM WITH TOMOSYNTHESIS AND CADRIGHT BREAST ULTRASOUND COMPLETELEFT BREAST ULTRASOUND COMPLETEHISTORY: 68-year-old female with history of right breast cancer status post partial mastectomy and radiationCOMPARISON: Presenting for follow-up. Multiple prior mammograms and breast ultrasound, most recent prior is dated 09/19/2018.MAMMOGRAM:Technique: CC, exaggerated CC, ML and MLO views of both breasts. CC and MLO tomographic images of each breast with C- view provided. Computer-aided detection is utilized.There are scattered areas of fibroglandular density.Right breast: Diffuse skin and trabecular thickening remains. The asymmetry at 12:00 axis is less prominent compared to prior mammogram with associated focal dystrophic calcification. However, ultrasound to be obtained for confirmation.Left breast: No evidence of new dominant mass, asymmetry, architectural distortion or suspicious microcalcifications is seen.ULTRASOUND:Technique: Complete survey of the right breast with survey of the right axilla obtained. Complete survey of the left breast with survey of the left axilla obtained. Real-time images of breasts performed by the radiologist as well.Right breast: At the 12:00 axis, 4 cm from the nipple, irregular 5 x 5 x 5 mm area is redemonstrated, is adjacent 2 the previously described calcification/calcified oil cysts. 12:00- 1:00 biopsy area is again seen as well. No axillary lymphadenopathy.Left breast: No evidence of focal mass, cyst or area of disturbed echotexture. No axillary lymphadenopathy.PHYSICAL EXAM:On exam, no palpable abnormalities . Right breast scar.IMPRESSION:Indeterminate irregular hypoechoic area, 5 x 5 x 5 mm right breast 12:00 axis. Unclear if this represents components of a oil cyst versus mass. Biopsy recommended.RECOMMENDATIONS: RETURN TO ANNUAL SCREENING MAMMOGRAM RECOMMENDED.Exam Date/Time09/30/2019 07:41 CSTReportBI-RADS Category 2: Benign Final Dictated by: MD Juan, Valeire FDictated DT/TM: 09/30/2019 10:29 amSigned by: MD Martinez Eniola FSigned (El ectronic Signature): 09/30/2019 10:39 am MG Mammo Digital Diagnostic Bilat 2018-09-19 16:31:24 Patient: JONATHAN ESCOBEDO Date/Time09/19/2018 09:31 CSTReason for ExamC50.411ReportLocation R 16- BILATERAL MAMMOGRAM WITH CAD, DIAGNOSTIC- LEFT BREAST ULTRASOUND COMPLETE- RIGHT BREAST ULTRASOUND COMPLETEHISTORY: 67 year-old female with history of right breast cancer status post partial meniscectomy with axillary dissection. She presents for annual exam.COMPARISON: Multiple mammograms dating as far back as 05/21/2016 with most recent prior dated 08/12/2017MAMMOGRAM:CC, exaggerated CC , ML and MLO views of both breasts. Spot compression views of the right breast in CC, ML and MLO.There are scattered areas of fibroglandular density.No evidence of new dominant mass or suspicious microcalcifications bilaterally. Right breast scar is stable with dystrophic calcification. Right axillary area is stable with postsurgical changes.ULTRASOUND:Technique: Complete survey of the left breast with survey of the left axilla obtained. Complete survey of the right breast with survey of the right axilla obtained.Right breast: Stable scar and previously biopsied area with clip. No evidence of new mass or cyst. Stable right axillary scar.Left breast: No evidence of focal mass, cyst or area of disturbed echotexture. A sebaceous cyst at the left axilla is stable measuring 6 x 5 x 4 mm.PHYSICAL EXAM:On exam, no palpable abnormalities. Right breast scar vis ible.IMPRESSION:1. No mammographic or sonographic evidence of malignancy.2. Stable right breast scar.RECOMMENDATIONS: FOLLOW-UP MAMMOGRAM AND BILATERAL BREAST ULTRASOUND IN ONE YEAR IN THE ABSENCE OF CLINICAL FINDINGS.Exam Date/Time09/19/2018 09:31 CSTReportBI-RADS CATEGORY 2: Benign Final Dictated by: MD Juan, Valerie FDictated DT/TM: 09/19/2018 4:26 pmSigned by: MD Martinez Eniola FSigned (Electronic Signature): 09/19/2018 4:31 pm US Breast Complete Right 2018-09-19 16:31:24 Pat ient: JONATHAN ESCOBEDO Date/Time09/19/2018 12:25 CSTReason for ExamC50.411ReportLocation R 16- BILATERAL MAMMOGRAM WITH CAD, DIAGNOSTIC- LEFT BREAST ULTRASOUND COMPLETE- RIGHT BREAST ULTRASOUND COMPLETEHISTORY: 67 year-old female with history of right breast cancer status post partial meniscectomy with axillary dissection. She presents for annual exam.COMPARISON: Multiple mammograms dating as far back as 05/21/2016 with most recent prior dated 08/12/2017MAMMOGRAM:CC, exaggerated CC , ML and MLO views of both breasts. Spot compression views of the right breast in CC, ML and MLO.There are scattered areas of fibroglandular density.No evidence of new dominant mass or suspicious microcalcifications bilaterally. Right breast scar is stable with dystrophic calcification. Right axillary area is stable with postsurgical changes.ULTRASOUND:Technique: Complete survey of the left breast with survey of the left axilla obtained. Complete survey of the right breast with survey of the right axilla obtained.Right breast: Stable scar and previously biopsied area with clip. No evidence of new mass or cyst. Stable right axillary scar.Left breast: No evidence of focal mass, cyst or area of disturbed echotexture. A sebaceous cyst at the left axilla is stable measuring 6 x 5 x 4 mm.PHYSICAL EXAM:On exam, no palpable abnormalities. Right breast scar vis ible.IMPRESSION:1. No mammographic or sonographic evidence of malignancy.2. Stable right breast scar.RECOMMENDATIONS: FOLLOW-UP MAMMOGRAM AND BILATERAL BREAST ULTRASOUND IN ONE YEAR IN THE ABSENCE OF CLINICAL FINDINGS.Exam Date/Time09/19/2018 12:25 CSTReportBI-RADS CATEGORY 2: Benign Final Dictated by: MD Juan, Valerie FDictated DT/TM: 09/19/2018 4:26 pmSigned by: MD Martinez Eniola FSigned (Electronic Signature): 09/19/2018 4:31 pm US Breast Complete Left 2018-09-19 16:31:24 Karyn ent: MAKENNA ESCOBEDOA Date/Time09/19/2018 12:25 CSTReason for ExamC50.411ReportLocation R 16- BILATERAL MAMMOGRAM WITH CAD, DIAGNOSTIC- LEFT BREAST ULTRASOUND COMPLETE- RIGHT BREAST ULTRASOUND COMPLETEHISTORY: 67 year-old female with history of right breast cancer status post partial meniscectomy with axillary dissection. She presents for annual exam.COMPARISON: Multiple mammograms dating as far back as 05/21/2016 with most recent prior dated 08/12/2017MAMMOGRAM:CC, exaggerated CC , ML and MLO views of both breasts. Spot compression views of the right breast in CC, ML and MLO.There are scattered areas of fibroglandular density.No evidence of new dominant mass or suspicious microcalcifications bilaterally. Right breast scar is stable with dystrophic calcification. Right axillary area is stable with postsurgical changes.ULTRASOUND:Technique: Complete survey of the left breast with survey of the left axilla obtained. Complete survey of the right breast with survey of the right axilla obtained.Right breast: Stable scar and previously biopsied area with clip. No evidence of new mass or cyst. Stable right axillary scar.Left breast: No evidence of focal mass, cyst or area of disturbed echotexture. A sebaceous cyst at the left axilla is stable measuring 6 x 5 x 4 mm.PHYSICAL EXAM:On exam, no palpable abnormalities. Right breast scar vis ible.IMPRESSION:1. No mammographic or sonographic evidence of malignancy.2. Stable right breast scar.RECOMMENDATIONS: FOLLOW-UP MAMMOGRAM AND BILATERAL BREAST ULTRASOUND IN ONE YEAR IN THE ABSENCE OF CLINICAL FINDINGS.Exam Date/Time09/19/2018 12:25 CSTReportBI-RADS CATEGORY 2: Benign Final Dictated by: MD Martinez Eniola FDictated DT/TM: 09/19/2018 4:26 pmSigned by: MD Martinez Eniola FSigned (Electronic Signature): 09/19/2018 4:31 pm US Breast Complete Right 2018-01-01 11:48:21 Pat ient: JONATHAN ESCOBEDO Date/Time01/01/2018 11:26 CDTReason for ExamC50.411ReportDictation location: [id number]: C50.411COMPARISON: 06/14/2017Technique: Grayscale and color doppler evaluation of the right breast, targeted to the area of concern.Clinical information: 67-year-old female presents for follow-up status post benign right breast biopsy at 1:00. Pathology showed fat necrosisFindings:- 1:00, 2 cm from the nipple, ill-defined shadowing focus and a biopsy clip compatible with the biopsy-proven fat necrosis- 12:00, 4 cm from the nipple , small peripherally calcified oil cyst- Axilla, postsurgical scarImpression:Biopsy-proven fat necrosis in the right breast at 1:00. Bilateral mammogram and right breast ultrasound is recommended May 2018.The patient was informed of the findings and recommendations at the time of the examination.ACR BI-RADS CATEGORY: 2- BENIGNRECOMMENDATION: BILATERAL MAMMOGRAM AND RIGHT BREAST ULTRASOUND MAY 2018. Final Dictated by: MD Petersen Daisha ADictated DT/TM: 01/01/2018 11:39 amSigned by: MD Petersen Daisha ASigned (Electronic Signature): 01/01/2018 11:48 am US GUIDED NEEDLE PLACEMENT 2017-08-12 10:56:47 ULTRASOUND-GUIDED CORE BREAST BIOPSY WITH CLIP PLACEMENT:RIGHT UNILATERAL DIAGNOSTIC MAMMOGRAM:R 16HISTORY: 66-year-old female with history of right breast cancer treatedwith lumpectomy and radiation. The patient is here for biopsy of a newmass in the right breast at 1:00.COMPARISON: Jun 14, 2017.TECHNIQUE: The risks, benefits and alternatives of the procedure wereexplained and signed consent was obtained. The right breast wassterilely prepped and draped in the usual fashion. Local anesthesia wasobtained with 1% lidocaine.Under ultrasound guidance, core biopsy of the right breast mass in the1:00 position was performed. 5 passes were made with an 14-gauge corebiopsy needle and specimens were sent to pathology in formalin.Subsequently a clip was deployed.Postbiopsy CC and mediolateral views shows the biopsy clip in theexpected location.The patient tolerated the procedure well with no immediatecomplications.IMPRESSION:1. Uncomplicated ultrasound-guided core biopsy of mass in the rightbreast. [facility] MAMMO DIAGNOSTIC UNI W/CAD-RIGHT 2017-08-12 10:56:47 ULTRASOUND-GUIDED CORE BREAST BIOPSY WITH CLIP PLACEMENT:RIGHT UNILATERAL DIAGNOSTIC MAMMOGRAM:R 16HISTORY: 66-year-old female with history of right breast cancer treatedwith lumpectomy and radiation. The patient is here for biopsy of a newmass in the right breast at 1:00.COMPARISON: Jun 14, 2017.TECHNIQUE: The risks, benefits and alternatives of the procedure wereexplained and signed consent was obtained. The right breast wassterilely prepped and draped in the usual fashion. Local anesthesia wasobtained with 1% lidocaine.Under ultrasound guidance, core biopsy of the right breast mass in the1:00 position was performed. 5 passes were made with an 14-gauge corebiopsy needle and specimens were sent to pathology in formalin.Subsequently a clip was deployed.Postbiopsy CC and mediolateral views shows the biopsy clip in theexpected location.The patient tolerated the procedure well with no immediatecomplications.IMPRESSION:1. Uncomplicated ultrasound-guided core biopsy of mass in the rightbreast. US BREAST COMPLETE-RIGHT 2017-06-14 15:13:39 [facility] MAMMO DIAGNOSTIC ILSA W/CAD, US BREAST COMPLETE-LEFT, US BREASTCOMPLETE-[id number]: MALIG NEOPLM OF UPPER- OUTER QUADRANT OF RIGHT FEMALE BREAST.Dictation Location: [id number] Information: 66-year-old female with history of right breastcancer status post lumpectomy and radiation therapy in 2014.Technique: Bilateral digital mammogram with computer assisted diagnosis. Bilateral CC, MLO and ML views were obtained. A supplemental rightXCCL view was obtained.Comparison: Prior mammograms dating back to 06/22/2015Findings: There are scattered areas of fibroglandular density. Scar markers wereplaced on the upper outer right breast and right axilla, overlyingstable postsurgical changes. Scattered benign type calcifications arepresent bilaterally. There is mild right breast skin thickening andtrabecular prominence compatible with postradiation changes. There areno suspicious masses or microcalcifications.Bilateral breast ultrasound:Subsequent bilateral breast ultrasound was performed utilizing a highfrequency linear array transducer. All 4 quadrants, axilla, andretroareolar of both breasts were evaluated. Right breast:- 1:00, 2 cm from the nipple, 10 x 7 x 10 mm irregular hypoechoic nodulefor which right breast ultrasound guided core biopsy is recommended.Left breast:- Axilla, 6 x 4 x 6 mm complicated cyst within the skinIMPRESSION: 1. A 10 mm irregular hypoechoic nodule in the right breast at 1:00, forultrasound-guided core biopsy is recommended.2. A 6 mm complicated cyst within the skin. This may represent asebaceous or epidermoid cyst. Dermatology or surgical follow-up can beobtained if clinically warranted.The patient was informed of the findings and recommendations at the timeof the examination.ACR BI-RADS CATEGORY: 4b-SUSPICIOUS RECOMMENDATION: RIGHT BREAST ULTRASOUND-GUIDED CORE BIOPSY. US BREAST COMPLETE-LEFT 2017-06-14 15:13:39 ANNA MAMMO DIAGNOSTIC ILSA W/CAD, US BREAST COMPLETE-LEFT, US BREASTCOMPLETE-[id number]: MALIG NEOPLM OF UPPER- OUTER QUADRANT OF RIGHT FEMALE BREAST.Dictation Location: [id number] Information: 66-year-old female with history of right breastcancer status post lumpectomy and radiation therapy in 2014.Technique: Bilateral digital mammogram with computer assisted diagnosis. Bilateral CC, MLO and ML views were obtained. A supplemental rightXCCL view was obtained.Comparison: Prior mammograms dating back to 06/22/2015Findings: There are scattered areas of fibroglandular density. Scar markers wereplaced on the upper outer right breast and right axilla, overlyingstable postsurgical changes. Scattered benign type calcifications arepresent bilaterally. There is mild right breast skin thickening andtrabecular prominence compatible with postradiation changes. There areno suspicious masses or microcalcifications.Bilateral breast ultrasound:Subsequent bilateral breast ultrasound was performed utilizing a highfrequency linear array transducer. All 4 quadrants, axilla, andretroareolar of both breasts were evaluated. Right breast:- 1:00, 2 cm from the nipple, 10 x 7 x 10 mm irregular hypoechoic nodulefor which right breast ultrasound guided core biopsy is recommended.Left breast:- Axilla, 6 x 4 x 6 mm complicated cyst within the skinIMPRESSION: 1. A 10 mm irregular hypoechoic nodule in the right breast at 1:00, forultrasound-guided core biopsy is recommended.2. A 6 mm complicated cyst within the skin. This may represent asebaceous or epidermoid cyst. Dermatology or surgical follow-up can beobtained if clinically warranted.The patient was informed of the findings and recommendations at the timeof the examination.ACR BI-RADS CATEGORY: 4b-SUSPICIOUS RECOMMENDATION: RIGHT BREAST ULTRASOUND-GUIDED CORE BIOPSY. [facility] MAMMO DIAGNOSTIC ILSA W/CAD 2017-06-14 15:13:39 [facility] MAMMO DIAGNOSTIC ILSA W/CAD, US BREAST COMPLETE-LEFT, US BREASTCOMPLETE-[id number]: MALIG NEOPLM OF UPPER-OUTER QUADRANT OF RIGHT FEMALE BREAST.Dictation Location: [id number] Information: 66-year-old female with history of right breastcancer status post lumpectomy and radiation therapy in 2014.Technique: Bilateral digital mammogram with computer assisted diagnosis. Bilateral CC, MLO and ML views were obtained. A supplemental rightXCCL view was obtained.Comparison: Prior mammograms dating back to 06/22/2015Findings: There are scattered areas of fibroglandular density. Scar markers wereplaced on the upper outer right breast and right axilla, overlyingstable postsurgical changes. Scattered benign type calcifications arepresent bilaterally. There is mild right breast skin thickening andtrabecular prominence compatible with postradiation changes. There areno suspicious masses or microcalcifications.Bilateral breast ultrasound:Subsequent bilateral breast ultrasound was performed utilizing a highfrequency linear array transducer. All 4 quadrants, axilla, andretroareolar of both breasts were evaluated. Right breast:- 1:00, 2 cm from the nipple, 10 x 7 x 10 mm irregular hypoechoic nodulefor which right breast ultrasound guided core biopsy is recommended.Left breast:- Axilla, 6 x 4 x 6 mm complicated cyst within the skin
--- OUTSIDE RECORDS SUMMARY | 2020-03-25 19:10 | XMS REPORT | Summary of Care ---
Author Author Alessandra Alberto, JONATHAN ULRICH Organization Unknown Address Unknown Phone Unavailable Care Team Providers Care Kitchen Operator Name Role Phone CAROLIN MALDONADO M.D. Unavailable Unavailable ANDERSON PRINCE MD Unavailable Unavailable Unavailable Unavailable Functional Status Name Dates Details Functional status health issues are not documented Status: Name Dates Details Cognitive status health issues are not d ocumented Status: Problems Name Dates Details Post-menopausal (V49.81, Z78.0) Status: Active Medications Name Dates Details Anastrozole [...] Refills: 0 * Start : 08-Jan-2020 Active Allergies and Adverse Reactions Name Dates Details No Known Allergies (Allergy) Status: Act mai Procedures Procedure Dates Details Procedures not documented Immunization Name Dates Details Immunizations not documented Social History Name Dates Details Tobacco smoking consumption unknown (finding) Vital Signs Date Test Result Details [id number] Systolic blood pressure 163 mm[Hg] Status: Comments [...] Details Planned Observations Planned Goals not documented Instructions Name Dates Details Instructions not documented Encounters Appointment; CAROLIN MALDONADO M.D. Encounter Diagnosis: Problem not documented On: 08-Jan-2020 14:30
--- OUTSIDE RECORDS SUMMARY | 2020-03-25 19:10 | XMS REPORT | Summary of Care ---
Author Author ASH Otoole, JONATHAN ULRICH Organization Unknown Address Unknown Phone Unavailable Care Team Providers Care Hot Die Press Feeder Name Role Phone LADI MALDONADO M.D. Unavailable Unavailable ANDERSON PRINCE MD [...] Details History of Lumpectomy Completed History of [place] lymph node biopsy procedure Completed Immunization Name Dates Details Immunizations not documented Social History Name Dates Details - Status: Name Dates Details Never smoked tobacco (finding) Vital Signs Date Test Result Details [id number] Systolic blood pressure 163 mm[Hg] Status: Comments [...] Planned Goals not documented Planned Encounters Appointment; LADI MALDONADO M.D. 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 * 1. Uterine procidentia * -Noted on pelvic exam today * -Denies urinary or bowel sxs * -TVUS 12/2019 (in external medical records): endometrial stripe 6 mm, 0.9 x 0.6 cm posterior fundal fibroid * -Fitted with pessary #5 today * -Rx for estrace cream given. Advised to apply daily for the next week, then decrease to twice weekly * -Referral to urogyn sent today * 2. Breast cancer * - R breast invasive ductal carcinoma (ER+/TX+, Her2-) Dx in 2014 (full management course in external medical records) * - s/p radiation, lumpectomy, SNLD. On anastrozole since 2015, reports that is supposed to take 5 the anastrozole for 5 years (so is scheduled to stop taking it in 2020) * - F/b an oncologist at [facility], next appointment 06/2020 * - F/b [facility], is to follow-up 03/2020 * 3. DM * -On metformin 1000 mg BID, glipizide 10 mg BID, gabapentin 300 mg BID, Invokana 100 mg daily, Farxiga 5 mg daily * 4. HTN * -On Enalapril 20 mg daily, valsartan 40 mg daily * -BP 182/77 -> 163/73 today. Asymptomatic * -Counseled Pt on the importance of following-up with PCP with HTN management. Pt reports that she will contact PCP for follow-up * 5. HLD * -On atorvastatin 10 mg daily * 6. HCM * -Pap: denies h/o abnormal paps smears. Paps not indicated * -MMG: reports had abnormal MMG 11/2019 with biopsy that was normal. Is scheduled for another MMG 03/2020 by an outside provider * RTC in 1 week for pessary check. * Discussed with and pessary fitting performed with Dr. Barbosa. * Ladi Maldonado MD * PGY-1 * . Instructions Name Dates Details Instructions not documented Encounters Appointment; LADI MALDONADO M.D. Encounter Diagnosis: Problem not documented On: 08-Jan-2020 14:30
--- OUTSIDE RECORDS SUMMARY | 2020-03-25 19:10 | XMS REPORT | Summary of Care ---
Author Author JONATHAN Vincent M.A. ULRICH Organization Unknown Address Unknown Phone Unavailable Care Team Providers Care High Density Press Operator Name Role Phone CAROLIN MALDONADO M.D. Unavailable Unavailable ANDERSON PRINCE MD Unavailable Unavailable TYRONE CORREA MD Unavailable Unavailable Unavailable Unavailable Functional Status [...] Details History of Lumpectomy Completed History of [place] lymph node biopsy procedure Completed Immunization Name Dates Details Immunizations not documented Social History Name Dates Details - Status: Name Dates Details Never smoked tobacco (finding) Vital Signs Date Test Result Details [id number] Systolic blood pressure 161 mm[Hg] Status: Comments [...] thod: Tympanic Heart Rate 111 /min Status: [id number] Systolic blood pressure 163 mm[Hg] Status: Comments [...] Appointment; TYRONE CORREA M.D. On: 21-Jan-2020 13:00 Instructions Name Dates Details Instructions not documented Encounters Appointment; CAROLIN MALDONADO M.D. Encounter Diagnosis: Problem not documented On: 08-Jan-2020 14:30 Appointment; CAROLIN MALDONADO M.D. Encounter Diagnosis: Problem not documented On: 15-Jan-2020 10:30
--- OUTSIDE RECORDS SUMMARY | 2020-03-25 19:10 | XMS REPORT | Summary of Care ---
Author Author ASH Otoole, JONATHAN ULRICH Organization Unknown Address Unknown Phone Unavailable Care Team Providers Care Director Security Risk Management Name Role Phone LADI MALDONADO M.D. Unavailable [...] Details History of Lumpectomy Completed History of [place] lymph node biopsy procedure Completed Immunization Name Dates Details Immunizations not documented Social History Name Dates Details - Status: Name Dates Details Never smoked tobacco (finding) Vital Signs Date Test Result Details [id number] Systolic blood pressure 163 mm[Hg] Status: Comments [...] significant for R breast invasive ductal carcinoma (ER+/[place]+, Her2-), DM, HTN, HLD, here for complaints [...] * - R breast invasive ductal carcinoma (ER+/OH+, Her2-) Dx in 2014 (full management course in external medical records) * - s/p radiation, lumpectomy, SNLD. On anastrozole since 2015, reports that is supposed to take 5 the anastrozole for 5 years (so is scheduled to stop taking it in 2020) * - F/b an oncologist at [facility], next appointment 06/2020 * - F/b [facility], is to follow-up 03/2020 * [...]
--- OUTSIDE RECORDS SUMMARY | 2020-03-25 19:10 | XMS REPORT | Summary of Care ---
Author Author JOEL Otoole, JONATHAN ULRICH Organization Unknown Address Unknown Phone Unavailable Care Team Providers Care Hospital Pharmacy Technician Name Role Phone CAROLIN MALDONADO M.D. Unavailable [...] (finding) Vital Signs Date Test Result Details [id number] Systolic blood pressure 163 mm[Hg] Status: Comments : Location: [facility]; Position: Sitting Diastolic blood pressure 73 mm[Hg] Status: Comment s: Location: [facility]; Position: Sitting Body height 60 in Status: Weight 152 lb Status: Body mass index (BMI) [Ratio] 29.69 kg/m2 Status: Body surface area Derived from formula 1.66 m2 S tatus: Heart Rate 97 /min Status: Results Date Description Value Details Results not documented Plan of Care Name Dates Details Planned Observations Planned Goals not documented Planned Encounters Appointment; CAROLIN MALDONADO M.D. On: 15-Jan-2020 10:30 Interventions Provided Medication Changes* Estradiol 0.1 MG/GM Vaginal Cream - Start Instructions Name Dates Details Instructions not documented Encounters Appointment; CAROLIN MALDONADO M.D. Encounter Diagnosis: Problem not documented On: 08-Jan-2020 14:30
== END 2020-03-23 18:55 | disposition home or self-care (01) ==
LOC: OR 05:21 → PACU V 09:24 → MED/SURG 14:10
PROVIDERS: ADMIT Obstetrics & Gynecology; ATTEND Obstetrics & Gynecology
DX: N81.4 Uterovaginal prolapse, unspecified (principal); Z01.812 Encounter for preprocedural laboratory examination; Z11.59 Encounter for screening for other viral diseases
CPT/HCPCS: 36415 ×2; 58267; 71046; 80053; 82947; 82948 ×2; 85025 ×2; 88307; 93005; G0378 ×2; J0690; J1170; J1817; J1956; J2175 ×2; J2270; J2405 ×2; J7121 ×2; U0002